=== PATIENT | female | born 1975 | race Caucasian/White ===

== ENCOUNTER → 2016-09-11 | Outpatient (REF) | payer OTHER | LOC: M LAB REF 14:11 | PROVIDERS: ATTEND Physician Assistant Medical | DX: N39.0 Urinary tract infection, site not specified (principal) ==

== ENCOUNTER → 2016-11-25 | Day surgery (SDC) | payer BC, OTHER ==
[~2016-11-25] VITALS: Ht 157.5 cm; Wt 56.2 kg
[~2016-11-25] MED LIST: AMLO5TAB2 PO; CRYS28TA PO; GLYCOPYRROLATE INJ 0.2 MG/ML 2 ML VIAL As Ordered ONE; HYDROmorphone HCL 2 MG/ML 1ML VIAL (J1170) As Ordered ONE; IBUPROFEN 600 MG TAB PO PRN; KETOROLAC 30 MG/ML VIAL (J1885) IV PRN; KETOROLAC 60 MG/2 ML VIAL (J1885) As Ordered ONE; LIDOCAINE 2% INJ 100 MG/5 ML SDV (FOR ANES.) As Ordered ONE; LOW-TAB2 PO; LR 1,000 ML IV ONE; LR 1,000 ML IV SCH; MEPERIDINE INJ 25 MG/ML VIAL (J2175) IV PRN; MIDAZOLAM INJ 2 MG/2 ML VIAL (J2250) As Ordered ONE; NEOSTIGMINE 1MG/ML 5 ML SYRINGE (J2710) As Ordered ONE; NORCO, ANEXSIA 5/325MG TABLET (HYDROcodone/ACETAMINOPHEN) PO PRN; ONDANSETRON 4MG/2ML VIAL (J2405) As Ordered ONE; ONDANSETRON 4MG/2ML VIAL (J2405) IV PRN; PERCOCET 5MG/325MG TAB PO PRN; PROPOFOL 200 MG/20 ML VIAL As Ordered ONE; ROCURONIUM BROMIDE 50 MG/5 ML VIAL As Ordered ONE; SUGAMMADEX SODIUM 500 MG/5 ML VIAL (BRIDION) As Ordered ONE; TOPA25TA10 PO; dexameTHASONE 4 MG/ML 1ML VIAL (J1100) As Ordered ONE; fentaNYL 100 MCG/2 ML INJECTION (J3010) IV PRN; fentaNYL 250 MCG/5 ML INJECTION (J3010) As Ordered ONE
[2016-11-25 07:06] LABS: CONTROL LINE UCG INT CTR LINE PRESENT
--- NOTE | 2016-11-25 09:11 | RO ---
DATE OF PROCEDURE: 11/25/2016 PREOPERATIVE DIAGNOSIS: Desire for permanent sterilization. POSTOPERATIVE DIAGNOSIS: Desire for permanent sterilization. PROCEDURE: Laparoscopic bilateral tubal ligation. SURGEON: Yumiko Garay MD CONDENSER WINDER: ANESTHESIA: General endotracheal anesthesia. BRIEF DESCRIPTION OF PROCEDURE AND FINDINGS: Cecelia was brought to the operating room where sufficient general endotracheal anesthesia was induced and she was prepped, draped and positioned in the usual sterile fashion. The uterine manipulator was placed after the uterus had been sounded to 9. This uterus would, with effort, be accessible from below. The bladder was emptied. Attention was then turned to the abdomen. A transverse semilunar incision was made under the umbilicus along the line of her previous surgical scar, and sharp and blunt dissection were continued through the subcutaneous tissues to the level of the rectus fascia which was elevated with Nona clamps and transversely incised and secured with #0 Vicryl retention sutures and the peritoneum was then bluntly entered and a Yoon cannula then placed under direct visualization in an open laparoscopic technique and the #0 Vicryl retention sutures used to secure it in place. CO2 insufflation was then begun. After adequate CO2 insufflation, the peritoneal cavity was visualized. There were normal shiny peritoneal surfaces throughout and there was no excrescence, ascites nor exudate, nor were there any significant adhesions. There was some mild distention of the bowel, which is more readily visible in this thin patient than is sometimes the case, but certainly no abnormalities. The uterus, ovaries and tubes were visualized and the tubes visualized to the fimbriated end. Using the operative port and the laparoscope, the bipolar cautery was used to elevate the tubes, starting first with the left one, and it was visualized to the fimbriated and then using bipolar cautery, cauterized in the isthmic portion in four separate locations and the same procedure was carried out on the right tube and pictures were taken to document the progress. The procedure was then ended. With the instruments removed, the CO2 allowed to escape, #0 Vicryl retention suture was used to close the fascial layer at the wound the skin closed with #3-0 Vicryl in a subcuticular stitch and dry sterile dressing applied. ESTIMATED BLOOD LOSS FOR PROCEDURE: About 2 mL. FLUID REPLACEMENT: Crystalloid. COMPLICATIONS: None. CONDITION/DISPOSITION: Cecelia tolerated the procedure well and was recovering in the recovery room in good condition.
[2016-11-25 11:15] VITALS: BP 122/80
== END | disposition home or self-care (01) ==
LOC: M SDC 06:31
PROVIDERS: ATTEND Obstetrics & Gynecology
DX: Z30.2 Encounter for sterilization (principal); I10 Essential (primary) hypertension; K90.0 Celiac disease; Z79.899 Other long term (current) drug therapy
CPT/HCPCS: 58670; 84703; J1100; J1170; J1885; J2250; J2405; J3010

== ENCOUNTER → 2016-12-20 | Outpatient (REF) | payer BC, OTHER ==
[~2016-12-20] MED LIST changes: -GLYCOPYRROLATE INJ 0.2 MG/ML 2 ML VIAL As Ordered ONE; -HYDROmorphone HCL 2 MG/ML 1ML VIAL (J1170) As Ordered ONE; -IBUPROFEN 600 MG TAB PO PRN; -KETOROLAC 30 MG/ML VIAL (J1885) IV PRN; -KETOROLAC 60 MG/2 ML VIAL (J1885) As Ordered ONE; -LIDOCAINE 2% INJ 100 MG/5 ML SDV (FOR ANES.) As Ordered ONE; -LR 1,000 ML IV ONE; -LR 1,000 ML IV SCH; -MEPERIDINE INJ 25 MG/ML VIAL (J2175) IV PRN; -MIDAZOLAM INJ 2 MG/2 ML VIAL (J2250) As Ordered ONE; -NEOSTIGMINE 1MG/ML 5 ML SYRINGE (J2710) As Ordered ONE; -NORCO, ANEXSIA 5/325MG TABLET (HYDROcodone/ACETAMINOPHEN) PO PRN; -ONDANSETRON 4MG/2ML VIAL (J2405) As Ordered ONE; -ONDANSETRON 4MG/2ML VIAL (J2405) IV PRN; -PERCOCET 5MG/325MG TAB PO PRN; -PROPOFOL 200 MG/20 ML VIAL As Ordered ONE; -ROCURONIUM BROMIDE 50 MG/5 ML VIAL As Ordered ONE; -SUGAMMADEX SODIUM 500 MG/5 ML VIAL (BRIDION) As Ordered ONE; -dexameTHASONE 4 MG/ML 1ML VIAL (J1100) As Ordered ONE; -fentaNYL 100 MCG/2 ML INJECTION (J3010) IV PRN; -fentaNYL 250 MCG/5 ML INJECTION (J3010) As Ordered ONE
== END ==
LOC: M LAB REF 14:16
PROVIDERS: ATTEND Physician Assistant Medical
DX: J02.9 Acute pharyngitis, unspecified (principal)

== ENCOUNTER → 2017-07-10 | Outpatient (CLI) | payer BC | LOC: M WHC 08:37 | DX: Z12.31 Encounter for screening mammogram for malignant neoplasm of breast (principal) | CPT/HCPCS: 77067 ==

== ENCOUNTER → 2017-07-10 | Outpatient (REF) | payer OTHER | LOC: M SFHCWAGY 09:10 | DX: Z12.4 Encounter for screening for malignant neoplasm of cervix (principal) | CPT/HCPCS: G0123 ==

== ENCOUNTER → 2017-10-01 | Outpatient (REF) | payer OTHER ==
[2017-10-01 16:04] LABS: HEMATOCRIT 38.6 % (36.0-47.0); HEMOGLOBIN 12.8 g/dl (12.0-16.0); MEAN CORPUSCULAR HGB CONC 33.2 g/dl (32.0-36.5); MEAN CORPUSCULAR VOLUME 90.4 fl (80.0-96.0); PLATELET COUNT, AUTOMATED 285 10^3/uL (150-450); RED BLOOD COUNT 4.27 10^6/uL (4.00-5.40); WHITE BLOOD COUNT 4.9 10^3/uL (4.0-10.0)
[2017-10-01 16:32] LABS: VITAMIN B12 LEVEL 329 PG/ML (247-911)
[2017-10-01 16:35] LABS: ALBUMIN/GLOBULIN RATIO 1.33 (1.00-1.93); ALKALINE PHOSPHATASE 46 U/L (45-117); ALT/SGPT 21 U/L (12-78); ANION GAP 6 MEQ/L (8-16); AST/SGOT 15 U/L (7-37); BILIRUBIN,TOTAL 0.4 MG/DL (0.2-1.0); BLOOD UREA NITROGEN 16 MG/DL (7-18); CALCIUM LEVEL 8.6 MG/DL (8.5-10.1); CARBON DIOXIDE LEVEL 26 MEQ/L (21-32); CHLORIDE LEVEL 110 MEQ/L (98-107); CHOLESTEROL LEVEL 206 MG/DL (<200); CHOLESTEROL RISK RATIO 3.433 (<5); CREATININE FOR GFR 0.86 MG/DL (0.55-1.30); GLOMERULAR FILTRATION RATE > 60.0 (>58); GLUCOSE, FASTING 79 MG/DL (70-100); HDL CHOLESTEROL 60 MG/DL (>40); LDL CHOLESTEROL 133.8 MG/DL (<100); NON-HDL-C 146 MG/DL; POTASSIUM SERUM 4.5 MEQ/L (3.5-5.1); SODIUM LEVEL 142 MEQ/L (136-145); TRIGLYCERIDES LEVEL 61 MG/DL (<150)
[2017-10-04 00:08] LABS: EBV VIRAL CAPSID AG IgM <36.0 U/mL (0.0-35.9); Lyme Disease IgG/IgM Antibodie <0.91 ISR (0.00-0.90); Lyme Disease IgM Ab Quantitati <0.80 index (0.00-0.79)
== END ==
LOC: M LABDRWAD 15:33
DX: Z00.00 Encounter for general adult medical examination without abnormal findings (principal); R53.83 Other fatigue; E53.8 Deficiency of other specified B group vitamins; I10 Essential (primary) hypertension

== ENCOUNTER → 2018-03-19 | Outpatient (REF) | payer OTHER ==
[2018-03-19 14:45] LABS: FERRITIN 45 NG/ML (8-252); IRON (FE) 98 UG/DL (50-170); TOTAL IRON BINDING CAPACITY 278 UG/DL (250-450)
[2018-03-19 15:02] LABS: TOTAL 25(OH) VITAMIN D 36.6 NG/ML (30.0-100.0)
[2018-03-19 15:35] LABS: PERCENT SATURATION 35.2 % (13.2-45.0)
== END ==
LOC: M LAB REF 13:17
DX: K90.0 Celiac disease (principal); K29.70 Gastritis, unspecified, without bleeding; K44.9 Diaphragmatic hernia without obstruction or gangrene; L65.9 Nonscarring hair loss, unspecified; E55.9 Vitamin D deficiency, unspecified

== ENCOUNTER → 2018-04-06 | Outpatient (REF) | payer OTHER | LOC: M LAB REF 18:59 | DX: D22.5 Melanocytic nevi of trunk (principal) | CPT/HCPCS: 88305 ==

== ENCOUNTER → 2018-07-13 | Outpatient (CLI) | payer BC ==
[~2018-07-13] MED LIST changes: -AMLO5TAB2 PO; +AMLO5TAB6 PO; +LOW-1TAB2 PO; -LOW-TAB2 PO; +TOPA1TAB PO; -TOPA25TA10 PO
--- NOTE | 2018-07-13 09:50 | REPMRS ---
Patient History The patient states she had a clinical breast exam in 07/2018. No known family history of cancer. Took hormonal contraceptives for 21 years 6 months. Digital Woman Screen Mammo: July 13, 2018 - Exam #: [id number] Bilateral CC and MLO view(s) were taken. Technologist: Nola Loco, Technologist Prior study comparison: July 10, 2017, digital woman screen mammo performed at [facility]. March 25, 2016, digital woman screen mammo performed at [facility]. February 06, 2015, digital woman screen mammo performed at [facility]. FINDINGS: There are scattered fibroglandular densities. There has been no change in the appearance of the mammogram from the prior studies. There is a mild amount of scattered fibroglandular density which is fairly symmetric. There is no interval development of dominant mass, architectural distortion, or clustered microcalcification suggestive of malignancy. 3-D tomosynthesis shows no additional findings. Assessment: BI-RADS/ACR category 1 mammogram. Negative. Recommendation Routine screening mammogram of both breasts in 1 year (for women over age 40). This patient's Lifetime Breast Cancer RIsk is estimated at 8.2 %. This mammogram was interpreted with the aid of an FDA-approved computer-aided dectection system. Electronically Signed By: Rufus Bell MD 07/13/18 0950
== END ==
LOC: M WHC 08:33
PROVIDERS: ATTEND Nurse Practitioner Women's Health
DX: Z12.31 Encounter for screening mammogram for malignant neoplasm of breast (principal)

== ENCOUNTER → 2018-07-22 | Outpatient (REF) | payer OTHER ==
[2018-07-22 12:54] LABS: ALBUMIN 3.8 GM/DL (3.2-5.2); ALT/SGPT 26 U/L (12-78); BILIRUBIN,TOTAL 0.6 MG/DL (0.2-1.0); BLOOD UREA NITROGEN 13 MG/DL (7-18); CALCIUM LEVEL 8.7 MG/DL (8.5-10.1); CARBON DIOXIDE LEVEL 22 MEQ/L (21-32); CHLORIDE LEVEL 106 MEQ/L (98-107); CREATININE FOR GFR 0.82 MG/DL (0.55-1.30); FREE T4 0.96 NG/DL (0.76-1.46); GLOMERULAR FILTRATION RATE > 60.0 (>58); GLUCOSE, FASTING 83 MG/DL (70-100); POTASSIUM SERUM 4.4 MEQ/L (3.5-5.1); SODIUM LEVEL 140 MEQ/L (136-145); TROPONIN I < 0.02 NG/ML (< 0.10); VITAMIN B12 LEVEL 299 PG/ML (247-911)
== END ==
LOC: M SFHCPLAZ 09:23
PROVIDERS: ATTEND Nurse Practitioner Adult Health
DX: L65.9 Nonscarring hair loss, unspecified (principal); E53.8 Deficiency of other specified B group vitamins; R07.89 Other chest pain

== ENCOUNTER → 2018-08-03 | Outpatient (CLI) | payer BC, OTHER ==
[~2018-08-03] MED LIST changes: +METHACHOLINE KIT (J7674) INH ONE
--- NOTE | 2018-08-03 10:04 | PFTRPT ---
Height: 62.00 Inches Weight: 130.00 Lbs BSA: 1.59 Diagnosis: R05 DATE OF PROCEDURE: 08/03/2018 ORDERING PROVIDER: Karmen Garcia Spirometry: Excellent technical quality. Forced vital capacity normal. FEV1 in proportion. Obstructive index is, therefore, normal. Flow Volume Loop: Expiratory limb of the flow volume loop is normal. Lung Volumes: Total lung capacity normal. Residual volume is in proportion. Diffusing Capacity: Diffusing capacity mildly reduced. Hemoglobin: No hemoglobin available for correction. Airway Mechanics: Airway resistance and conductance are normal. IMPRESSION: Mild reduction in the absolute diffusing capacity requires clinical correlation. MTDD
--- NOTE | 2018-08-03 10:54 | PFTRPT ---
Height: 62.00 Inches Weight: 130.00 Lbs BSA: 1.59 Diagnosis: R05 DATE OF PROCEDURE: 08/03/2018 ORDERED BY: Karmen Garcia INTERPRETATION: Study of excellent technical quality. Under protocol, methacholine was administered. Even after a maximal dose of 25 mg or 188.875 CDUs, no provocation dose ever achieved. IMPRESSION: Negative methacholine challenge study. MTDD
--- NOTE | 2018-08-03 17:54 | ECHO ---
DATE OF PROCEDURE: 08/03/2018 REFERRING PHYSICIAN: Karmen Garcia RN INDICATION: Chest pain. Height 157 cm Weight 58 kg. DIMENSIONS: IVS 0.9 LV 4.5 LVPW 0.9 LA 3.3 aorta 2.6 IVC 1.9 Left atrial volume index 18 E wave velocity 79, A wave 65 E prime septal 9.9, E prime lateral 9.5 FINDINGS: The patient is in sinus rhythm. Study is of good technical quality. Left ventricle is normal size and systolic function with estimated LVEF 55-60%. No segmental wall motion abnormalities are noted. Right ventricle is also normal size and systolic function. Both atria appear normal. Aortic, mitral and tricuspid valves appear normal. Pulmonic valve was not well seen. No pericardial effusion is present. Inferior vena cava is normal size and appropriately collapses with respiration indicative of normal central venous pressure. Aortic root, aortic arch and visualized segment of abdominal aorta appear normal. Doppler interrogation reveals competent aortic valve. There is trace mitral and trace tricuspid insufficiency. Calculated pulmonary artery pressure is within normal limits. Mitral inflow pattern and tissue Doppler imaging of mitral annulus reveal normal diastolic functional ventricle. It is further supported by normal left atrial volume index. CONCLUSIONS: 1. Study is of good technical quality. 2. Normal LV size, systolic and diastolic function. 3. No significant valvular disease. 4. Likely normal central venous pressure and pulmonary artery pressure. COMMENT: SBE prophylaxis is not recommended. Normal echocardiogram. MTDD
== END ==
LOC: M CARPUL 08:06
PROVIDERS: ATTEND Nurse Practitioner Adult Health
DX: R05 Cough (principal); R07.89 Other chest pain
CPT/HCPCS: 93306; 94010; 94070; 94726; 94729; J7674

== ENCOUNTER 2019-03-04 18:15 | Emergency (ER) | payer BC, OTHER ==
[~2019-03-04] VITALS: Ht 157.5 cm; Wt 59.2 kg
[~2019-03-04 18:15] MED LIST changes: -METHACHOLINE KIT (J7674) INH ONE
[2019-03-04] MEDS ORDERED: AMLO2.5T3 (18:24)
[2019-03-04] MEDS ORDERED: TOPI100T9 (18:24)
[2019-03-04 18:49] LABS: BASO # 0.1 10^3/uL (0.0-0.2); BASO % 0.7 % (0.0-1.0); EOS # 0.2 10^3/uL (0.0-0.50); EOS % 2.1 % (0.0-3.0); HEMATOCRIT 40.9 % (36.0-47.0); HEMOGLOBIN 14.3 g/dl (12.0-15.5); LYMPH # 2.5 10^3/uL (1.5-4.5); LYMPH % 32.5 % (24.0-44.0); MEAN CORPUSCULAR HEMOGLOBIN 31.1 pg (27.0-33.0); MEAN CORPUSCULAR VOLUME 88.9 fl (80.0-96.0); MONO # 0.6 10^3/uL (0.0-0.8); NEUTROPHILS # 4.3 10^3/uL (1.8-7.7); NEUTROPHILS % 56.4 % (36.0-66.0); PLATELET COUNT, AUTOMATED 248 10^3/uL (150-450); WHITE BLOOD COUNT 7.7 10^3/uL (4.0-10.0)
[2019-03-04 19:02] LABS: INR 1.07; PROTHROMBIN TIME 13.6 SECONDS (11.8-14.0)
--- NOTE | 2019-03-04 19:04 | REP ---
Portable chest, 06:49 p.m., single AP view with the patient sitting: There are no comparisons. There are no infiltrates. There are no pleural effusions. Is a faintly visible 11 ml density superimposed over the right lung inferiorly, possibly a nipple artifact. There are no comparison studies to document stability. CT might be considered for confirmation. Cardiac size is normal. The lachelle, mediastinum, and skeletal structures are unremarkable. Impression: There is a density inferiorly in the right lung, nipple artifact versus lung nodule. There are no comparison studies. CT is recommended for confirmation. Otherwise, negative portable chest. Electronically Signed by Lorne Montes De Oca MD 03/04/2019 06:56 P
[2019-03-04] MEDS ORDERED: cloNIDine 0.1 MG TAB PO ONE (19:15)
[2019-03-04 19:17] LABS: ALBUMIN 4.1 GM/DL (3.2-5.2); ALT/SGPT 22 U/L (12-78); BILIRUBIN,DIRECT 0.1 MG/DL (0.0-0.2); BILIRUBIN,TOTAL 0.3 MG/DL (0.2-1.0); BLOOD UREA NITROGEN 12 MG/DL (7-18); CALCIUM LEVEL 8.7 MG/DL (8.5-10.1); CARBON DIOXIDE LEVEL 23 MEQ/L (21-32); CHLORIDE LEVEL 110 MEQ/L (98-107); CK-MB VALUE MASS 1.3 NG/ML (<3.6); CPK CREATINE PHOSPHOKINASE 88 U/L (26-192); GLOMERULAR FILTRATION RATE > 60.0 (>58); GLUCOSE, FASTING 87 MG/DL (70-100); LIPASE 107 U/L (73-393); MB/CK RELATIVE INDEX 1.48 (< OR =4); POTASSIUM SERUM 3.4 MEQ/L (3.5-5.1); SODIUM LEVEL 140 MEQ/L (136-145); TOTAL PROTEIN 7.2 GM/DL (6.4-8.2); TROPONIN I < 0.02 NG/ML (< 0.10)
[2019-03-04 19:23] VITALS: BP 183/115
[2019-03-04 19:45] LABS: FREE THYROXINE INDEX 2.4 % (1.3-4.8); T UPTAKE 31 % (30-39); THYROXINE (T4) 7.8 UG/DL (4.5-12.0)
--- NOTE | 2019-03-04 20:41 | REPVR ---
EXAM: CT Head Without Contrast EXAM DATE/TIME: 03/04/2019 7:25 PM CLINICAL HISTORY: 43 years old, female; Pain; Headache not specified; Additional info: SOL TECHNIQUE: Imaging protocol: Computed tomography of the head without contrast. Radiation optimization: All CT scans at this facility use at least one of these dose optimization techniques: automated exposure control; mA and/or kV adjustment per patient size (includes targeted exams where dose is matched to clinical indication); or iterative reconstruction. COMPARISON: No relevant prior studies available. FINDINGS: Brain: The white-guthrie differentiation is preserved demonstrating no acute territorial type infarct. No acute intracranial hemorrhage is seen. No intracranial mass effect. Midline shift: There is no midline shift. Ventricles: No ventriculomegaly. Bones/joints: The calvarium demonstrates no evidence for a depressed fracture. Sinuses: Visualized sinuses are unremarkable. No fluid levels. Mastoid air cells: No mastoid effusion. Soft tissues: Unremarkable. IMPRESSION: No acute intracranial abnormality. Electronically signed by: Reno Palmer On 03/04/2019 20:41:13 PM
[2019-03-04 21:18] LABS: ERYTHROCYTE SEDIMENTATION RATE 4 mm/hr (0-20)
--- NOTE | 2019-03-04 21:32 | ECGEPIP ---
[facility] - ED Test Date: 2019-03-04 Pat Name: PATEL RIVERA Department: Room: - Gender: Female Scaleman: : 1975 Requested By: NI Valencia Order Number: [id number] Reading MD: Mary Kay Daigle Measurements Intervals [place] Rate: 96 P: 46 UT: 136 QRS: 56 QRSD: 93 T: 39 QT: 360 QTc: 457 Interpretive Statements SINUS RHYTHM MINIMAL VOLTAGE CRITERIA FOR LVH, CONSIDER NORMAL VARIANT NSTTW abnormalities NO PRIOR Electronically Signed on 03-04-2019 21:32:12 EDT by Mary Kay Daigle
[2019-03-04] MEDS ORDERED: MORPHINE 2 MG/ML 1ML SYRINGE (J2270) IV ONE (22:15)
[2019-03-04] MEDS ORDERED: NS 500 ML IV ONE (22:15)
[2019-03-04] MEDS ORDERED: IBUPROFEN 600 MG TAB PO ONE (22:30)
[2019-03-04 22:50] VITALS: BP 121/81
--- NOTE | 2019-03-07 07:48 | ED PDOC ---
Post-Departure Follow-Up carol helton faxed formal report of cxr for fu Winnie Allred MD Mar 07, 2019 07:48
== END 2019-03-04 22:55 | disposition home or self-care (01) ==
LOC: M ED 18:15
DX: I10 Essential (primary) hypertension (principal); R51 Headache; R00.0 Tachycardia, unspecified; K21.9 Gastro-esophageal reflux disease without esophagitis; Z79.899 Other long term (current) drug therapy

== ENCOUNTER → 2019-03-18 | Outpatient (REF) | payer OTHER ==
[~2019-03-18] MED LIST changes: +AMLO2.5T3; +TOPI100T9
[2019-03-18 19:51] LABS: PERCENT SATURATION 31.3 % (13.2-45.0)
[2019-03-21 00:06] LABS: ENDOMYSIAL ABY IgA Negative (Negative); TISSUE TRANSGLUTAMINASE IgA <2 U/mL (0-3)
== END ==
LOC: M LABDRWAD 18:55
PROVIDERS: ATTEND Internal Medicine Gastroenterology
DX: K90.0 Celiac disease (principal)

== ENCOUNTER → 2019-03-31 | Outpatient (CLI) | payer BC, OTHER ==
--- NOTE | 2019-04-01 02:33 | REP ---
Clinical: Hypertension and chronic medical renal disease. Technique: Aguilar scale and color Doppler evaluation of the kidneys and renal vasculature using curved array transducer. Findings: The kidneys are essentially normal in contour size and echogenicity and reniform shape without hydronephrosis, nephrolithiasis, cystic or renal mass lesion. Right kidney measures 10.5 x 5.3 x 4.0 cm . Left kidney measures 11.4 x 4.2 x 5.9 cm . Bladder is incompletely distended and grossly normal by current evaluation with bilateral ureteral jets noted. Color Doppler evaluation of the renal vasculature demonstrates normal arterial wave patterns, velocities, renal aortic ratios, resistive indices and the acceleration time. No sonographic evidence for renal arterial stenosis noted. Renal vein is patent. Right Kidney: Peak arterial velocity: 119 cm/sec . Renal aortic ratio: 1.2 . Resistive indices: 0.57 - 0.58 . Acceleration times: 0.04 . Left kidney: Peak arterial velocity: 101 cm/sec . Renal aortic ratio: 1.0 . Resistive indices: 0.55 - 0.57 . Acceleration times: 0.04 - 0.05 . Impression: Normal renal ultrasound. No sonographic evidence for renal arterial stenosis. Electronically Signed by Yg Woodruff MD 04/01/2019 02:24 A
--- NOTE | 2019-04-01 05:29 | REP ---
Clinical: Possible right lung lesion by a recent x-ray. Comparison: X-ray dated 03/04/2019. Technique: Axial noncontrast images from the thoracic inlet to the upper abdomen with coronal and sagittal re-formations. Findings: The bilateral lung lugo are relatively symmetric, well aerated, and clear. No consolidation, nodule or mass lesion appreciated. No pleural effusion. No pneumothorax. Tracheobronchial tree is patent. The density identified in the right lung on recent portable x-ray likely represented asymmetric nipple shadow. Mediastinum is normal for noncontrast evaluation and without aneurysm or cardiomegaly. No pericardial effusion. Surrounding musculoskeletal structures are intact. Limited upper abdomen demonstrates normal bilateral adrenal glands and evidence of prior cholecystectomy. Impression: 1. Normal noncontrast chest CT. No acute mediastinal or pleuroparenchymal process appreciated. 2. Abnormal density identified on recent x-ray corresponds to asymmetric nipple shadow. Electronically Signed by Yg Woodruff MD 04/01/2019 05:21 A
== END ==
LOC: M RAD 07:34
PROVIDERS: ATTEND Nurse Practitioner Adult Health
DX: I10 Essential (primary) hypertension (principal); Z90.49 Acquired absence of other specified parts of digestive tract

== ENCOUNTER → 2019-07-14 | Outpatient (CLI) | payer BC, OTHER ==
--- NOTE | 2019-07-14 12:11 | REPMRS ---
Patient History The patient states she has not had a clinical breast exam in over a year. No known family history of cancer. Took hormonal contraceptives for 21 years 6 months. Digital Woman Screen Mammo: July 14, 2019 - Exam #: [id number] Bilateral CC and MLO view(s) were taken. Technologist: Arielle Simon, Technologist Prior study comparison: July 13, 2018, bilateral digital woman screen mammo performed at [facility]. July 10, 2017, digital woman screen mammo performed at [facility]. March 25, 2016, digital woman screen mammo performed at [facility]. FINDINGS: There are scattered fibroglandular densities. There is a moderate amount of residual fibroglandular tissue which is fairly symmetric. There is no interval development of dominant mass, architectural distortion, or grouped microcalcification typical of malignancy. There has been no change in the appearance of the mammogram from the prior studies. 3-D tomosynthesis shows no additional findings. Assessment: BI-RADS/ACR category 1 mammogram. Negative Mammogram. Recommendation Routine screening mammogram of both breasts in 1 year (for women over age 40). This patient's Lifetime Breast Cancer RIsk is estimated at 8.1 %. This mammogram was interpreted with the aid of an FDA-approved computer-aided dectection system. Electronically Signed By: Rufus Bell MD 07/14/19 [id number]
== END ==
LOC: M WHC 08:58
PROVIDERS: ATTEND Nurse Practitioner Women's Health
DX: Z12.31 Encounter for screening mammogram for malignant neoplasm of breast (principal)

== ENCOUNTER → 2021-07-17 | Outpatient (REF) | payer BC, OTHER ==
[~2021-07-17] MED LIST changes: +AMLO1TAB24 PO; -AMLO5TAB6 PO
[2021-07-18 09:07] LABS: SARS-CoV-2 ANTIBODY IgM Negative (Negative)
== END ==
LOC: M LABDRWAD 13:13
PROVIDERS: ATTEND Nurse Practitioner Adult Health
DX: Z20.822 Contact with and (suspected) exposure to COVID-19 (principal)

== ENCOUNTER → 2021-07-17 | Outpatient (CLI) | payer BC, OTHER ==
[2021-07-17 13:47] LABS: HEMATOCRIT 41.5 % (36.0-47.0); HEMOGLOBIN 13.7 g/dl (12.0-15.5); MEAN CORPUSCULAR VOLUME 90.8 fl (80.0-96.0); PLATELET COUNT, AUTOMATED 305 10^3/uL (150-450); RED BLOOD COUNT 4.57 10^6/uL (4.00-5.40); WHITE BLOOD COUNT 5.1 10^3/uL (4.0-10.0)
[2021-07-17 14:17] LABS: TOTAL 25(OH) VITAMIN D 48.5 NG/ML (30.0-100.0)
[2021-07-18 16:12] LABS: ENDOMYSIAL ABY IgA Negative (Negative); TISSUE TRANSGLUTAMINASE IgA <2 U/mL (0-3); TISSUE TRANSGLUTAMINASE IgG 5 U/mL (0-5)
== END ==
LOC: M ADAMS 10:13
PROVIDERS: ATTEND Student in an Organized Health Care Education/Training Program
DX: K90.0 Celiac disease (principal); E56.9 Vitamin deficiency, unspecified

== ENCOUNTER → 2021-11-27 | Outpatient (CLI) | payer BC, OTHER | LOC: M PLAIMG 07:51 | PROVIDERS: ATTEND Nurse Practitioner Adult Health | DX: M25.511 Pain in right shoulder (principal); Z53.9 Procedure and treatment not carried out, unspecified reason ==

== ENCOUNTER → 2022-07-17 | Outpatient (REF) | payer BC, OTHER | LOC: M WUC 09:36 | PROVIDERS: ATTEND Physician Assistant | DX: R30.0 Dysuria (principal) ==

== ENCOUNTER → 2022-10-21 | Outpatient (REF) | payer BC, OTHER | LOC: M LAB REF 12:47 | PROVIDERS: ATTEND Student in an Organized Health Care Education/Training Program | DX: R30.0 Dysuria (principal) ==

== ENCOUNTER → 2024-06-21 | Outpatient (CLI) | payer OTHER, BC ==
[2024-06-21 10:50] LABS: HEMATOCRIT 37.7 % (36.0-47.0); HEMOGLOBIN 12.4 g/dl (12.0-15.5); MEAN CORPUSCULAR HEMOGLOBIN 30.4 pg (27.0-33.0); MEAN CORPUSCULAR HGB CONC 32.9 g/dl (32.0-36.5); MEAN CORPUSCULAR VOLUME 92.4 fl (80.0-96.0); PLATELET COUNT, AUTOMATED 292 10^3/uL (150-450); RED BLOOD COUNT 4.08 10^6/uL (4.00-5.40); WHITE BLOOD COUNT 5.5 10^3/uL (4.0-10.0)
[2024-06-21 11:21] LABS: ALBUMIN 3.7 G/DL (3.2-5.2); ALKALINE PHOSPHATASE 37 U/L (35-104); ALT/SGPT 14 U/L (7.0-40); AST/SGOT 12 U/L (<34); BILIRUBIN,TOTAL 0.6 MG/DL (0.3-1.2); BLOOD UREA NITROGEN 17 MG/DL (9-23); CALCIUM LEVEL 9.1 MG/DL (8.5-10.1); CARBON DIOXIDE LEVEL 27 MMOL/L (20-31); CHLORIDE LEVEL 107 MMOL/L (98-107); CHOLESTEROL LEVEL 220 MG/DL (<200); CREATININE FOR GFR 0.87 MG/DL (0.55-1.30); GLOMERULAR FILTRATION RATE > 60.0 (>58); GLUCOSE, FASTING 88 MG/DL (60-100); HDL CHOLESTEROL 59.3 MG/DL (>40); LDL CHOLESTEROL 148.3 MG/DL (<100); NON-HDL-C 160.7 MG/DL; POTASSIUM SERUM 4.2 MMOL/L (3.5-5.1); SODIUM LEVEL 140 MMOL/L (136-145); TOTAL PROTEIN 6.7 G/DL (5.7-8.2); TRIGLYCERIDES LEVEL 62 MG/DL (<150)
[2024-06-21 11:27] LABS: FREE T4 0.86 NG/DL (0.89-1.76)
[2024-06-21 11:28] LABS: FERRITIN 55.4 NG/ML (7.3-270.7); THYROID STIMULATING HORMONE 3.574 uIU/ML (0.55-4.78)
[2024-06-21 11:30] LABS: FOLLICLE STIMULATING HORMONE 6.9 mIU/ML; PROGESTERONE 9.42 NG/ML
[2024-06-21 11:31] LABS: LUTEINIZING HORMONE 5.7 mIU/ML
[2024-06-21 11:33] LABS: VITAMIN B12 LEVEL 298 PG/ML (211-911)
== END ==
LOC: M WUC 08:07
PROVIDERS: ATTEND Nurse Practitioner Adult Health
DX: Z00.00 Encounter for general adult medical examination without abnormal findings (principal); I10 Essential (primary) hypertension; Z13.220 Encounter for screening for lipoid disorders; L65.9 Nonscarring hair loss, unspecified; E53.8 Deficiency of other specified B group vitamins; Z13.21 Encounter for screening for nutritional disorder; N95.1 Menopausal and female climacteric states

== ENCOUNTER → 2025-02-03 | Outpatient (CLI) | payer BC ==
[~2025-02-03] MED LIST changes: +TOPI-257; -TOPI100T9
== END ==
LOC: M PLALAB 13:50
PROVIDERS: ATTEND Nurse Practitioner Adult Health
DX: M47.817 Spondylosis without myelopathy or radiculopathy, lumbosacral region (principal); M54.50 Low back pain, unspecified

== ENCOUNTER → 2025-02-08 | Outpatient (CLI) | payer BC ==
[2025-02-08 12:39] LABS: PLATELET COUNT, AUTOMATED 276 10^3/uL (150-450)
[2025-02-08 13:14] LABS: FREE T4 1.05 NG/DL (0.89-1.76)
[2025-02-08 13:17] LABS: VITAMIN B12 LEVEL 255.0 PG/ML (211-911)
[2025-02-08 13:18] LABS: IRON (FE) 150.0 UG/DL (50-170)
[2025-02-08 13:19] LABS: ALT/SGPT 13.0 U/L (7.0-40); AST/SGOT 19.0 U/L (<34); CALCIUM LEVEL 8.9 MG/DL (8.5-10.1); CARBON DIOXIDE LEVEL 26.0 MMOL/L (20-31); CHLORIDE LEVEL 106.0 MMOL/L (98-107); CHOLESTEROL LEVEL 204.0 MG/DL (<200); CHOLESTEROL RISK RATIO 3.31 (<5); CREATININE FOR GFR 0.82 MG/DL (0.55-1.30); GLOMERULAR FILTRATION RATE 87.1 (>51); LDL CHOLESTEROL 125.1 MG/DL (<100); NON-HDL-C 142.5 MG/DL; PERCENT SATURATION 50.8 % (13.2-45.0); POTASSIUM SERUM 4.2 MMOL/L (3.5-5.1); SODIUM LEVEL 142.0 MMOL/L (136-145); TRIGLYCERIDES LEVEL 87.0 MG/DL (<150)
== END ==
LOC: M WUC 08:26
PROVIDERS: ATTEND Nurse Practitioner Adult Health
DX: Z00.00 Encounter for general adult medical examination without abnormal findings (principal); I10 Essential (primary) hypertension; N92.6 Irregular menstruation, unspecified; R53.83 Other fatigue; E55.9 Vitamin D deficiency, unspecified; Z13.220 Encounter for screening for lipoid disorders; E53.8 Deficiency of other specified B group vitamins

== ENCOUNTER → 2025-06-17 | Outpatient (CLI) | payer BC | LOC: M RAD 12:23 | PROVIDERS: ATTEND Nurse Practitioner Adult Health | DX: R14.0 Abdominal distension (gaseous) (principal); N92.6 Irregular menstruation, unspecified; N88.8 Other specified noninflammatory disorders of cervix uteri; R93.89 Abnormal findings on diagnostic imaging of other specified body structures ==